=== PATIENT | female | born 1985 | race Caucasian/White ===

== ENCOUNTER 2022-07-15 09:14 | Outpatient (CLI) | payer OTHER, SELFPAY ==
[2022-07-15 11:12] LABS: Albumin* 4.9 g/dL (3.3-5.0)
[2022-07-15 11:13] LABS: Chloride* 105 mmol/L (96-114); Sodium* 139 mmol/L (135-149)
[2022-07-15 11:15] LABS: Bilirubin Direct* 0.7 mg/dL (0.0-0.5); Bilirubin Total* 2.3 mg/dL (0.1-1.5); Carbon Dioxide* 26 mmol/L (20-32); Cholesterol* 174 mg/dL (90-199); Creatinine* 0.7 mg/dL (0.5-1.5); Estimated Glomerular Filt Rate 115 ml/min; Total Protein* 7.9 g/dL (6.0-8.3)
[2022-07-15 11:16] LABS: Alanine Aminotransferase* 17 U/L (4-35); Alkaline Phosphatase* 64 U/L (40-150); Aspartate Amino Transferase* 42 U/L (12-35); Blood Urea Nitrogen* 15 mg/dL (5-24); Calcium* 9.5 mg/dL (8.4-10.6); Glucose* 85 mg/dL (60-115); LDL Cholesterol Calculated 101 mg/dL (<100); Triglycerides* 60 mg/dL (40-149)
[2022-07-15 11:40] LABS: HDL Cholesterol* 61 mg/dL (>=50)
[2022-07-15 11:41] LABS: Potassium* 5.4 mmol/L (3.6-5.1)
== END 2022-07-15 09:15 | disposition home or self-care (01) ==
PROVIDERS: PCP Obstetrics & Gynecology; Visit Provider Obstetrics & Gynecology
DX: Z01.419 Encounter for gynecological examination (general) (routine) without abnormal findings (principal); I10 Essential (primary) hypertension; Z13.6 Encounter for screening for cardiovascular disorders
CPT/HCPCS: 80048; 80061; 80076

== ENCOUNTER 2023-01-14 09:17 | Outpatient (CLI) | payer OTHER, SELFPAY | END 2023-01-14 09:18 | disposition home or self-care (01) | LOC: NFLDREF 01-15 03:41 | PROVIDERS: PCP Obstetrics & Gynecology; Referring Provider Obstetrics & Gynecology; Visit Provider Family Medicine | DX: R79.89 Other specified abnormal findings of blood chemistry (principal) | CPT/HCPCS: 80053 ==

== ENCOUNTER 2023-10-01 11:10 | Outpatient (CLI) | payer OTHER, SELFPAY | END 2023-10-01 11:11 | disposition home or self-care (01) | LOC: NFLDREF 10-02 14:47 | PROVIDERS: PCP Family Medicine; Referring Provider Obstetrics & Gynecology; Visit Provider Family Medicine | DX: Z00.00 Encounter for general adult medical examination without abnormal findings (principal); I10 Essential (primary) hypertension; R79.89 Other specified abnormal findings of blood chemistry; Z12.4 Encounter for screening for malignant neoplasm of cervix; Z13.6 Encounter for screening for cardiovascular disorders | CPT/HCPCS: 80053; 80061 ==

== ENCOUNTER 2023-10-16 13:41 | Outpatient (CLI) | payer OTHER, SELFPAY ==
--- NOTE | 2023-10-16 14:00 | CRLHL7_ITS ---
For Patients: As a result of the Century Cures Act, medical imaging exams and procedure reports are released immediately into your electronic medical record. You may view this report before your referring provider. If you have questions, please contact your health care provider. INDICATION: ELEVATED BILIRUBIN, RUQ PAIN COMPARISON: 10/02/2017 CT TECHNIQUE: Real time costa scale imaging and color Doppler analysis was performed of the right upper quadrant. FINDINGS: The patient`s liver is of normal size and has uniform echogenicity. There is a normal appearance of the hepatic IVC and proximal abdominal aorta. There is no evidence of ascites. The gallbladder is of normal size and there is no evidence of intraluminal stones or sludge. The gallbladder wall measures 1.4 mm in thickness. The common bile duct is of normal size and measures 3.7 mm in diameter at the level of the iris hepatis. The pancreas appears normal. There is no evidence of a stone or hydronephrosis within the right kidney. The right kidney measures 11.5 cm in length. IMPRESSION: Normal right upper quadrant ultrasound. Dictated by Juliano Odom MD @ 10/20/2023 9:16:14 AM (Electronically Signed)
== END 2023-10-16 13:42 | disposition home or self-care (01) ==
LOC: US 13:43
PROVIDERS: PCP Family Medicine; Visit Provider Family Medicine
DX: R10.9 Unspecified abdominal pain (principal); R79.89 Other specified abnormal findings of blood chemistry
CPT/HCPCS: 76705

== ENCOUNTER 2024-01-21 16:09 | Emergency (ER) | payer OTHER, SELFPAY ==
[2024-01-21 16:13] VITALS: BP 151/99; PULSE 90; RESP 18; TEMP 36.7; O2SAT 100; BMI 20.5
--- NOTE | 2024-01-21 16:35 | ED.GENADULT ---
HPI - General Adult General Date Seen: 01/21/24 Chief complaint: Abdominal Pain Stated complaint: Few days-sharp abdomen pains radiating to back Time Seen by Provider: 01/21/24 16:20 Source: patient, RN notes reviewed and old records reviewed Mode of arrival: ambulatory Limitations: no limitations History of Present Illness HPI narrative: Patient is a 38-year-old woman who presents with abdominal pain. She says she has been having a little bit of abdominal pain on a daily basis for about a year now. She has not really paid attention but has not noticed any particular pattern to it, she is not sure if it is related to certain foods, does not notice a specific association with her menses. She does note that she has about 2 days late for her period currently. She is not on control, she is , no new sexual partners. She had been seen in clinic last year with this pain, had LFTs showed a mildly elevated bilirubin, direct bili of 0.7, indirect of 1.5. She had an ultrasound of her gallbladder and liver which was unremarkable. There was discussion about HIDA scan if she continued to have pain but she has not had that done. She says the pain is there a lot of the time but if she is busy she does not really notice it. Today she had more severe pain, diffuse and sharp with some radiation to her low back. This lasted about 20 minutes, this is resolved but she still has this dull pain that is more chronic. She sometimes gets nausea, denies vomiting, no diarrhea. Denies constipation. No urinary symptoms. Only abdominal surgeries are C-sections. General health otherwise good. Does not smoke, rare alcohol. Related Data Previous Rx's Medication Instructions Recorded amlodipine 5 mg tablet 5 mg PO QDAY #90 tabs 10/01/23 Allergies Allergy/AdvReac Type Severity Reaction Status Date / Time No Known Allergies Allergy Unverified 10/01/23 09:51 Review of Systems Status of ROS: Reports: 10 or more systems reviewed and unremarkable except as noted in History and below [facility] Medical History Kidney stone ?N20.0 - Calculus of kidney (ICD-10) History of delivery (07/30/16) ?Z87.51 - Personal history of pre-term labor (ICD-10) History of pre-eclampsia ?Z87.59 - Personal history of other complications of , childbirth and the puerperium (ICD-10) History of placental abruption (07/30/16) ?Z87.59 - Personal history of other complications of , childbirth and the puerperium (ICD-10) Gross hematuria ?R31.0 - Gross hematuria (ICD-10) Surgical History H/O LEEP ?Z98.890 - Other specified postprocedural states (ICD-10) Status post repeat low transverse section ?Z98.891 - History of uterine scar from previous surgery (ICD-10) Status post delivery (07/30/16) ?Z98.891 - History of uterine scar from previous surgery (ICD-10) Family History Family/Other FH: premature coronary heart disease, Onset Age: 39 Father High blood pressure Social History Narrative: Active lifestyle , 2 kids, working manager of [employer] bachelor's degree Non-smoker Rarely consumes alcohol No recreational drug use Smoking Status: Never smoker Little interest or pleasure in doing things: not at all Feeling down, depressed, or hopeless: not at all Exam Narrative: Exam Narrative: Vital signs as noted above. In general, an alert, well-appearing patient. Head: Normocephalic, atraumatic. Eyes: Pupils are equal reactive. Extraocular movements are full. Conjunctivae are normal. ENT: Mucous membranes are moist. Neck: Supple without lymphadenopathy. Heart: Regular rate and rhythm. No murmur or rub. Lungs: Clear bilaterally. No increased work of breathing, crackles or wheezes. Abdomen: Soft, nondistended, mild diffuse tenderness without rebound guarding or rigidity. Negative 's. No focal abdominal tenderness. Extremities: Well perfused. No edema. No calf tenderness. Pulses intact. Neurologic: Patient is alert and oriented to person and place. Speech is fluent. Face is symmetric. Moves all extremities equally. Affect: Normal. Skin: Warm and dry. Well perfused. Const: Vital Signs, click to edit/add: Vital Signs - 24 hr 01/21/24 16:13 Temperature 98.0 F Pulse Rate [Pulse Oximeter] 90 Respiratory Rate 18 Blood Pressure [Ri ght Upper Arm] 151/99 H Pulse Oximetry 100 Oxygen Delivery Me thod Room Air Documenting provider has reviewed patient's vital signs: yes Course Course ED Course: Patient presents with acute worsening of chronic abdominal pain of uncertain etiology. Discussed that we can certainly look today for acute problems such as biliary colic, pancreatitis, cholecystitis, perforated viscus, diverticulitis, etcetera, but in terms of her more chronic pain it will probably be more difficult to evaluate. She has not tried any kind of PPI to this point. I reviewed her prior ultrasound which is unremarkable. Will go ahead and recheck labs here. If these are all normal, I think CT scan is probably of limited utility, but will discuss further after labs are back. She declines the need for anything for pain or nausea. Labs here are unremarkable. White blood cell count is normal at 5.6, hemoglobin 13.2, normal diff. Metabolic panel is normal, LFTs are likewise normal, bilirubin today is 1.3 with a direct bilirubin of 0. Lactate is 0.9. CRP is less than 0.5, lipase 150 and UA shows 0-2 red cells and 0-2 white cells. Discussed all of this with her. Reviewed that I think CT scanning is relatively unlikely to show a clear cause for her chronic abdominal pain, but she felt that she would feel better if we did some imaging, so we did go ahead and do a CT scan with contrast of the abdomen and pelvis. By my review this had no significant findings. Read as unremarkable by Radiology:FINDINGS: Lower chest: Unremarkable. Liver: Unremarkable. Normal in size and attenuation. No suspicious masses. Gallbladder and bile ducts: Unremarkable. No stones or inflammation. No biliary dilatation. Pancreas: Unremarkable. No mass or inflammation. Spleen: Unremarkable. Normal in size. No masses. Adrenal glands: Unremarkable. No nodules. Kidneys: Unremarkable. No suspicious masses, stones, or hydronephrosis. GI tract: Unremarkable. Normal in caliber. No sign of mass or inflammation. Normal appendix. Vasculature: Abdominal aorta is normal in caliber. Mesenteric arteries are patent. Lymph nodes: No lymphadenopathy. Peritoneum/Abdominal Wall: Unremarkable. No sign of mass or infiltration. No free air or significant free fluid. Pelvis: Unremarkable. Bones: Unremarkable for age. IMPRESSION: Unremarkable CT of the abdomen and pelvis. No findings to explain abdominal pain. She is relieved by this. She does still wonder why she is having pain and reviewed with her that I cannot tell her exactly. I would recommend that she follow up in clinic. This does not sound particularly suspicious for biliary colic to me, I know that she and her primary doctor discussed possibly doing a HIDA scan. Other considerations would be dietary intolerance, endometriosis. I have encouraged her to keep log of her symptoms to evaluate for any possible patterns. Return any time for significant worsening new symptoms such as vomiting or fever, bloody stools etc.. Vital Signs Vital signs: Initial Vital Signs Temperature 98.0 F 01/21/24 16:13 Temperature Source Temporal Artery Scan 01/21/24 16:13 Pulse Rate 90 01/21/24 16:13 Pulse Rhythm Regular 01/21/24 16:13 Respiratory Rate 18 01/21/24 16:13 Blood Pressure 151/99 H 01/21/24 16:13 Blood Pressure Mean 116 H 01/21/24 16:13 Blood Pressure Position Sitting 01/21/24 16:13 Pulse Oximetry 100 01/21/24 16:13 Oxygen Delivery Method Room Air 01/21/24 16:13 Vital Signs Temperature 98.0 F 01/21/24 16:13 Pulse Rate 90 01/21/24 16:13 Respiratory Rate 18 01/21/24 16:13 Blood Pressure 151/99 H 01/21/24 16:13 Pulse Oximetry 100 01/21/24 16:13 Oxygen Delivery Method Room Air 01/21/24 16:13 Temperature 98.0 F 01/21/24 16:13 Pulse Rate 90 01/21/24 16:13 Respiratory Rate 18 01/21/24 16:13 Blood Pressure 151/99 H 01/21/24 16:13 Pulse Oximetry 100 01/21/24 16:13 Oxygen Delivery Method Room Air 01/21/24 16:13 Medical Decision Making Lab Data Labs: Lab Results 01/21/24 01/21/24 01/21/24 Range/Units 16:46 16:46 16:46 WBC 5.66 (4.50-11.00) K/uL RBC 4.47 (4.00-5.20) m/uL Hgb 13.2 (12.0-16.0) gm/dL Hct 39.7 (33.0-51.0) % MCV 89 (80-100) fL MCH 30 (26-34) pg MCHC 33 (32-36) gm/dL RDW Coeff of [place] 11.8 (11.5-15.5) % Plt Count 199 (140-440) K/uL Neut % (Auto) 53.0 (42.0-72.0) % Lymph % (Auto) 35.7 (20-44) % [place] % (Auto) 9.5 (0.0-11.0) % Eos % (Auto) 1.2 (0.0-7.0) % Baso % (Auto) 0.4 (0.0-3.0) % Neut # (Auto) 3.00 (1.7-7.0) K/uL Lymph # (Auto) 2.02 (0.90-2.90) K/uL [place] # (Auto) 0.50 (0.00-0.90) K/UL Eos # (Auto) 0.07 (0.00-0.50) K/uL Baso # (Auto) 0.02 (0.00-0.30) K/uL Abs Immat Gran (auto) 0.01 (0.00-0.30) K/uL Imm/Tot Granulo (auto) 0.2 % Sodium Cancelled 139 Potassium Cancelled 3.5 L Chloride Cancelled Carbon Dioxide Anion Gap BUN Creatinine Estimated Creat Clear Estimated GFR Glucose Lactate (0.5-1.9) mmol/L Calcium Total Bilirubin (0.1-1.5) mg/dL Direct Bilirubin (0.0-0.5) mg/dL AST (12-35) U/L ALT (4-35) U/L Alkaline Phosphatase (40-150) U/L C-Reactive Protein (0.5-1.0) mg/dL Total Protein (6.0-8.3) g/dL Albumin (3.3-5.0) g/dL Lipase (23-300) U/L Urine Color (Yellow) Urine Appearance (Clear) Urine pH (5.0-8.5) Ur Specific [place] (1.000-1.030) Urine Protein (Negative) Urine Glucose (UA) (Negative) Urine Ketones (Negative) Urine Blood (Negative) Urine Nitrite (Negative) Urine Bilirubin (Negative) Urine Urobilinogen (0.2-1.0) Ur Leukocyte Esterase (Negative) Urine RBC (0-2) Urine WBC (0-5) Ur Squamous Epith Cells (None-Few) Amorphous Sediment (None) Urine Bacteria (None) Urine HCG, Qual (Negative) 01/21/24 01/21/24 01/21/24 Range/Units 16:46 16:46 16:46 WBC (4.50-11.00) K/uL RBC (4.00-5.20) m/uL Hgb (12.0-16.0) gm/dL Hct (33.0-51.0) % MCV (80-100) fL MCH (26-34) pg MCHC (32-36) gm/dL RDW Coeff of [place] (11.5-15.5) % Plt Count (140-440) K/uL Neut % (Auto) (42.0-72.0) % Lymph % (Auto) (20-44) % [place] % (Auto) (0.0-11.0) % Eos % (Auto) (0.0-7.0) % Baso % (Auto) (0.0-3.0) % Neut # (Auto) (1.7-7.0) K/uL Lymph # (Auto) (0.90-2.90) K/uL [place] # (Auto) (0.00-0.90) K/UL Eos # (Auto) (0.00-0.50) K/uL Baso # (Auto) (0.00-0.30) K/uL Abs Immat Gran (auto) (0.00-0.30) K/uL Imm/Tot Granulo (auto) % Sodium Potassium Chloride 106 Carbon Dioxide Cancelled 26 Anion Gap Cancelled 7 BUN Cancelled Creatinine Estimated Creat Clear Estimated GFR Glucose Lactate (0.5-1.9) mmol/L Calcium Total Bilirubin (0.1-1.5) mg/dL Direct Bilirubin (0.0-0.5) mg/dL AST (12-35) U/L ALT (4-35) U/L Alkaline Phosphatase (40-150) U/L C-Reactive Protein (0.5-1.0) mg/dL Total Protein (6.0-8.3) g/dL Albumin (3.3-5.0) g/dL Lipase (23-300) U/L Urine Color (Yellow) Urine Appearance (Clear) Urine pH (5.0-8.5) Ur Specific [place] (1.000-1.030) Urine Protein (Negative) Urine Glucose (UA) (Negative) Urine Ketones (Negative) Urine Blood (Negative) Urine Nitrite (Negative) Urine Bilirubin (Negative) Urine Urobilinogen (0.2-1.0) Ur Leukocyte Esterase (Negative) Urine RBC (0-2) Urine WBC (0-5) Ur Squamous Epith Cells (None-Few) Amorphous Sediment (None) Urine Bacteria (None) Urine HCG, Qual (Negative) 01/21/24 01/21/24 01/21/24 Range/Units 16:46 16:46 16:46 WBC (4.50-11.00) K/uL RBC (4.00-5.20) m/uL Hgb (12.0-16.0) gm/dL Hct (33.0-51.0) % MCV (80-100) fL MCH (26-34) pg MCHC (32-36) gm/dL RDW Coeff of [place] (11.5-15.5) % Plt Count (140-440) K/uL Neut % (Auto) (42.0-72.0) % Lymph % (Auto) (20-44) % [place] % (Auto) (0.0-11.0) % Eos % (Auto) (0.0-7.0) % Baso % (Auto) (0.0-3.0) % Neut # (Auto) (1.7-7.0) K/uL Lymph # (Auto) (0.90-2.90) K/uL [place] # (Auto) (0.00-0.90) K/UL Eos # (Auto) (0.00-0.50) K/uL Baso # (Auto) (0.00-0.30) K/uL Abs Immat Gran (auto) (0.00-0.30) K/uL Imm/Tot Granulo (auto) % Sodium Potassium Chloride Carbon Dioxide Anion Gap BUN 18 Creatinine Cancelled 0.8 Estimated Creat Clear Cancelled 92.17 Estimated GFR Cancelled Glucose Lactate (0.5-1.9) mmol/L Calcium Total Bilirubin (0.1-1.5) mg/dL Direct Bilirubin (0.0-0.5) mg/dL AST (12-35) U/L ALT (4-35) U/L Alkaline Phosphatase (40-150) U/L C-Reactive Protein (0.5-1.0) mg/dL Total Protein (6.0-8.3) g/dL Albumin (3.3-5.0) g/dL Lipase (23-300) U/L Urine Color (Yellow) Urine Appearance (Clear) Urine pH (5.0-8.5) Ur Specific [place] (1.000-1.030) Urine Protein (Negative) Urine Glucose (UA) (Negative) Urine Ketones (Negative) Urine Blood (Negative) Urine Nitrite (Negative) Urine Bilirubin (Negative) Urine Urobilinogen (0.2-1.0) Ur Leukocyte Esterase (Negative) Urine RBC (0-2) Urine WBC (0-5) Ur Squamous Epith Cells (None-Few) Amorphous Sediment (None) Urine Bacteria (None) Urine HCG, Qual (Negative) 01/21/24 01/21/24 01/21/24 Range/Units 16:46 16:46 16:46 WBC (4.50-11.00) K/uL RBC (4.00-5.20) m/uL Hgb (12.0-16.0) gm/dL Hct (33.0-51.0) % MCV (80-100) fL MCH (26-34) pg MCHC (32-36) gm/dL RDW Coeff of [place] (11.5-15.5) % Plt Count (140-440) K/uL Neut % (Auto) (42.0-72.0) % Lymph % (Auto) (20-44) % [place] % (Auto) (0.0-11.0) % Eos % (Auto) (0.0-7.0) % Baso % (Auto) (0.0-3.0) % Neut # (Auto) (1.7-7.0) K/uL Lymph # (Auto) (0.90-2.90) K/uL [place] # (Auto) (0.00-0.90) K/UL Eos # (Auto) (0.00-0.50) K/uL Baso # (Auto) (0.00-0.30) K/uL Abs Immat Gran (auto) (0.00-0.30) K/uL Imm/Tot Granulo (auto) % Sodium Potassium Chloride Carbon Dioxide Anion Gap BUN Creatinine Estimated Creat Clear Estimated GFR 97 Glucose Cancelled 94 Lactate 0.9 (0.5-1.9) mmol/L Calcium Cancelled 8.9 Total Bilirubin 1.3 (0.1-1.5) mg/dL Direct Bilirubin 0.0 (0.0-0.5) mg/dL AST 23 (12-35) U/L ALT 15 (4-35) U/L Alkaline Phosphatase 68 (40-150) U/L C-Reactive Protein < 0.5 L (0.5-1.0) mg/dL Total Protein 6.8 (6.0-8.3) g/dL Albumin 4.1 (3.3-5.0) g/dL Lipase 150 (23-300) U/L Urine Color (Yellow) Urine Appearance (Clear) Urine pH (5.0-8.5) Ur Specific [place] (1.000-1.030) Urine Protein (Negative) Urine Glucose (UA) (Negative) Urine Ketones (Negative) Urine Blood (Negative) Urine Nitrite (Negative) Urine Bilirubin (Negative) Urine Urobilinogen (0.2-1.0) Ur Leukocyte Esterase (Negative) Urine RBC (0-2) Urine WBC (0-5) Ur Squamous Epith Cells (None-Few) Amorphous Sediment (None) Urine Bacteria (None) Urine HCG, Qual (Negative) 01/21/24 Range/Units 16:55 WBC (4.50-11.00) K/uL RBC (4.00-5.20) m/uL Hgb (12.0-16.0) gm/dL Hct (33.0-51.0) % MCV (80-100) fL MCH (26-34) pg MCHC (32-36) gm/dL RDW Coeff of [place] (11.5-15.5) % Plt Count (140-440) K/uL Neut % (Auto) (42.0-72.0) % Lymph % (Auto) (20-44) % [place] % (Auto) (0.0-11.0) % Eos % (Auto) (0.0-7.0) % Baso % (Auto) (0.0-3.0) % Neut # (Auto) (1.7-7.0) K/uL Lymph # (Auto) (0.90-2.90) K/uL [place] # (Auto) (0.00-0.90) K/UL Eos # (Auto) (0.00-0.50) K/uL Baso # (Auto) (0.00-0.30) K/uL Abs Immat Gran (auto) (0.00-0.30) K/uL Imm/Tot Granulo (auto) % Sodium Potassium Chloride Carbon Dioxide Anion Gap BUN Creatinine Estimated Creat Clear Estimated GFR Glucose Lactate (0.5-1.9) mmol/L Calcium Total Bilirubin (0.1-1.5) mg/dL Direct Bilirubin (0.0-0.5) mg/dL AST (12-35) U/L ALT (4-35) U/L Alkaline Phosphatase (40-150) U/L C-Reactive Protein (0.5-1.0) mg/dL Total Protein (6.0-8.3) g/dL Albumin (3.3-5.0) g/dL Lipase (23-300) U/L Urine Color Yellow (Yellow) Urine Appearance Slightly Cloudy A (Clear) Urine pH 7.0 (5.0-8.5) Ur Specific [place] 1.020 (1.000-1.030) Urine Protein Negative (Negative) Urine Glucose (UA) Negative (Negative) Urine Ketones Negative (Negative) Urine Blood Negative (Negative) Urine Nitrite Negative (Negative) Urine Bilirubin Negative (Negative) Urine Urobilinogen 1.0 (0.2-1.0) Ur Leukocyte Esterase Negative (Negative) Urine RBC 0-2 (0-2) Urine WBC 0-2 (0-5) Ur Squamous Epith Cells None (None-Few) Amorphous Sediment Moderate A (None) Urine Bacteria Few A (None) Urine HCG, Qual Negative (Negative) Discharge Plan Discharge Clinical Impression: Abdominal pain Patient Disposition: Home, Self-Care Condition: Improved Instructions: Abdominal Pain (ED) Additional Instructions: Recommend primary care follow-up for further discussion. Labs and CT scan are all normal tonight including liver function tests. Return at any time for severe persistent pain or new symptoms such as fever, vomiting, bloody stools or other worsening. Prescriptions: No Action amlodipine 5 mg tablet 5 mg PO QDAY Qty: 90 3RF Follow Up/Referrals: Conor Sosa MD [Primary Care Provider] - Stand Alone Forms: [facility] Info Instructions
[2024-01-21 16:54] LABS: Lactate Sepsis w/Reflex* 0.9 mmol/L (0.5-1.9)
[2024-01-21 17:03] LABS: Appearance Urine Slightly Cloudy (Clear); Bilirubin Urine Negative (Negative); Blood Urine Negative (Negative); Color Urine Yellow (Yellow); Glucose Urine Negative (Negative); Ketones Urine Negative (Negative); Leukocyte Esterase Urine Negative (Negative); Nitrite Urine Negative (Negative); Protein Urine Negative (Negative)
[2024-01-21 17:08] LABS: Ur HCG Qualitative* Negative (Negative)
[2024-01-21 17:11] LABS: Amorphous Sediment Urine Moderate; Bacteria Urine Few; RBC Urine 0-2 (0-2); WBC Urine 0-2 (0-5)
[2024-01-21 17:11] LABS: Basophils Absolute Auto 0.02 K/uL (0.00-0.30); Basophils Percent Auto 0.4 % (0.0-3.0); Chloride* 106 mmol/L (96-114); Eosinophils Absolute Auto 0.07 K/uL (0.00-0.50); Eosinophils Percent Auto 1.2 % (0.0-7.0); Hematocrit 39.7 % (33.0-51.0); Hemoglobin* 13.2 gm/dL (12.0-16.0); Immature Granulocytes Abs Auto 0.01 K/uL (0.00-0.30); Immature Granulocytes Pct Auto 0.2 %; Lymphocytes Absolute Auto 2.02 K/uL (0.90-2.90); Lymphocytes Percent Auto 35.7 % (20-44); Mean Corpuscular HGB Conc 33 gm/dL (32-36); Mean Corpuscular Hemoglobin 30 pg (26-34); Mean Corpuscular Volume 89 fL (80-100); Monocytes Percent Auto 9.5 % (0.0-11.0); Platelet Count* 199 K/uL (140-440); RDW Coefficient of Variation % 11.8 % (11.5-15.5); Red Blood Count 4.47 m/uL (4.00-5.20); White Blood Count* 5.66 K/uL (4.50-11.00)
[2024-01-21 17:12] LABS: Albumin* 4.1 g/dL (3.3-5.0); Sodium* 139 mmol/L (135-149)
[2024-01-21 17:13] LABS: Potassium* 3.5 mmol/L (3.6-5.1)
[2024-01-21 17:15] LABS: Alkaline Phosphatase* 68 U/L (40-150); Anion Gap 7 mEq/L (7-15); Aspartate Amino Transferase* 23 U/L (12-35); Bilirubin Total* 1.3 mg/dL (0.1-1.5); Blood Urea Nitrogen* 18 mg/dL (5-24); Carbon Dioxide* 26 mmol/L (20-32); Creatinine* 0.8 mg/dL (0.5-1.5); Est. Creatinine Clearance* 92.17; Estimated Glomerular Filt Rate 97 ml/min; Lipase* 150 U/L (23-300); Total Protein* 6.8 g/dL (6.0-8.3)
[2024-01-21 17:16] LABS: Alanine Aminotransferase* 15 U/L (4-35); Calcium* 8.9 mg/dL (8.4-10.6); Glucose* 94 mg/dL (60-115)
[2024-01-21 17:28] LABS: C Reactive Protein* < 0.5 mg/dL (0.5-1.0); Slide Review Reflex No
--- NOTE | 2024-01-21 18:13 | CT_ITS ---
Patient: YOSELYN ORNELAS Facility:?[facility] RIS Patient ID:?[id number] Site Patient ID:?[id number]. Site :?[id number] Study:?CT-Abdomen/Pelvis W ISOVUE 370-01/21/2024 7:17:48 PM Ordering Physician:PIERO Final Report: INDICATION: Chronic abdominal pain. TECHNIQUE: CT abdomen and pelvis acquired with 67 cc Isovue 370 IV contrast. COMPARISON: October 02, 2017. FINDINGS: Lower chest: Unremarkable. Liver: Unremarkable. Normal in size and attenuation. No suspicious masses. Gallbladder and bile ducts: Unremarkable. No stones or inflammation. No biliary dilatation. Pancreas: Unremarkable. No mass or inflammation. Spleen: Unremarkable. Normal in size. No masses. Adrenal glands: Unremarkable. No nodules. Kidneys: Unremarkable. No suspicious masses, stones, or hydronephrosis. GI tract: Unremarkable. Normal in caliber. No sign of mass or inflammation. Normal appendix. Vasculature: Abdominal aorta is normal in caliber. Mesenteric arteries are patent. Lymph nodes: No lymphadenopathy. Peritoneum/Abdominal Wall: Unremarkable. No sign of mass or infiltration. No free air or significant free fluid. Pelvis: Unremarkable. Bones: Unremarkable for age. IMPRESSION: Unremarkable CT of the abdomen and pelvis. No findings to explain abdominal pain. Please note that all CT scans at this facility use dose modulation, iterative reconstruction, and/or weight-based dosing when appropriate to reduce radiation dose to as low as reasonably achievable. Dictated by Ghulam Miller MD @ 01/21/2024 7:51:02 PM Signed by:?Ghulam Miller MD @01/21/2024 7:51:02 PM (Electronic Signature)
== END 2024-01-21 20:07 | disposition home or self-care (01) ==
PROVIDERS: Emergency Provider Emergency Medicine; PCP Family Medicine
DX: R10.9 Unspecified abdominal pain (principal)
CPT/HCPCS: 36415; 74177; 80048; 80076; 81001; 81025; 83605; 83690; 85025; 86140; 87086; 99284; 99285; Q9967